=== PATIENT | male | born 1970 | race African-American/Black ===

== ENCOUNTER → 2017-01-20 | Day surgery (SDC) | payer OTHER ==
[2017-01-17 09:45] VITALS: BP 152/72
[~2017-01-20] MED LIST: ADDERALL XR30 MG PO; AMBIEN10 M1 PO; Motrin,Rufen800 MG PO; NORCO 325 MG-51 TAB PO; PERCOCET 325 MG1 TA5 PO; PERCOCET 5-3251 EACH PO; VISTARIL25 MG PO
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
[2017-01-20 07:30] VITALS: BP 126/82
[2017-01-20 07:30] LABS: BASO % 0.5 % (0.0-1.0); EOS # 0.1 10*3/uL (0.0-0.4); EOS % 3.5 % (1.0-4.0); HEMATOCRIT 39.2 % (42.0-52.0); HEMOGLOBIN 13.9 g/dl (14.0-18.0); LYMPH # 1.5 10*3/uL (1.3-4.4); LYMPH % 39.4 % (27.0-41.0); MEAN CELL VOLUME 90.5 fl (80.0-94.0); MEAN CORPUSCULAR HGB 32.1 pg (27.0-31.0); MEAN CORPUSCULAR HGB CONC 35.5 g/dl (33.0-37.0); MEAN PLATELET VOLUME 9.2 fl (9.6-12.3); MONO # 0.6 10*3/uL (0.1-1.0); MONO % 14.9 % (3.0-9.0); NEUT # 1.6 10*3/uL (2.3-7.9); NEUT % 41.4 % (47.0-73.0); PLATELET COUNT AUTOMATED 256 10*3/uL (130-400); RED BLOOD COUNT 4.33 10*6/uL (4.50-5.90); RED CELL DISTRI WIDTH 12.6 % (0-14.5); WHITE BLOOD COUNT 3.8 10*3/uL (4.8-10.8)
[2017-01-20 07:42] LABS: BUN 14 mg/dl (7-24); CHLORIDE 109 mmol/L (98-107); CREATININE 1.51 mg/dL (0.70-1.30); POTASSIUM 3.8 mmol/L (3.5-5.1); SODIUM 141 mmol/L (136-145)
[2017-01-20 08:54] VITALS: BP 104/57
[2017-01-20 09:09] VITALS: BP 104/61
[2017-01-20 09:24] VITALS: BP 106/72
[2017-01-20 09:35] VITALS: BP 112/64
== END ==
LOC: SDC 01-17 09:30
PROVIDERS: Surgery
DX: M60.28 Foreign body granuloma of soft tissue, not elsewhere classified, other site (principal); Z18.89 Other specified retained foreign body fragments; J45.909 Unspecified asthma, uncomplicated; Z98.890 Other specified postprocedural states; Z90.5 Acquired absence of kidney

== ENCOUNTER → 2018-10-18 | Outpatient (CLI) | payer OTHER | END | disposition home or self-care (01) | LOC: NM 07:00 | DX: E05.90 Thyrotoxicosis, unspecified without thyrotoxic crisis or storm (principal); R53.83 Other fatigue ==

== ENCOUNTER → 2019-04-24 | Outpatient (CLI) | payer OTHER ==
[2019-04-24 09:57] LABS: BILIRUBIN NEGATIVE (NEGATIVE); BLOOD NEGATIVE (NEGATIVE); CLARITY CLEAR (CLEAR); COLOR YELLOW (YELLOW); GLUCOSE NEGATIVE (NEGATIVE); KETONE NEGATIVE (NEGATIVE); LEUKO ESTERASE NEGATIVE (NEGATIVE); NITRITE NEGATIVE (NEGATIVE); UROBILINOGEN 0.2 E.U./dl (0.2-1.0)
[2019-04-24 10:13] LABS: ALBUMIN 3.5 gm/dl (3.1-4.5); CREATININE 1.68 mg/dL (0.70-1.30); POTASSIUM 3.7 mmol/L (3.5-5.1)
[2019-04-24 10:15] LABS: PHOSPHOROUS 2.4 mg/dL (2.5-4.9); TOTAL PROTEIN 7.1 gm/dL (6.4-8.2)
[2019-04-24 10:44] LABS: WBC 0-2 wbc/hpf (0-5)
[2019-04-24 10:45] LABS: VITAMIN D, 25-HYDROXY 16.9 ng/mL (30-100)
[2019-04-25 04:08] LABS: CREATININE,URINE 142.3 mg/dL (Not Estab.)
== END | disposition home or self-care (01) ==
LOC: LAB 09:06 → US 09:30
PROVIDERS: Internal Medicine Nephrology
DX: N18.3 Chronic kidney disease, stage 3 (moderate) (principal)

== ENCOUNTER → 2021-11-18 | Outpatient (CLI) | payer OTHER ==
[2021-11-18 10:39] LABS: CREATININE 1.67 mg/dL (0.70-1.30)
== END | disposition home or self-care (01) ==
LOC: CT 11-03 10:00 → LAB 10:07 → CT 10:07
PROVIDERS: ATTEND Internal Medicine
DX: N40.0 Benign prostatic hyperplasia without lower urinary tract symptoms (principal); M62.89 Other specified disorders of muscle; I87.8 Other specified disorders of veins; M48.061 Spinal stenosis, lumbar region without neurogenic claudication

== ENCOUNTER → 2022-04-28 | Outpatient (CLI) | payer OTHER | END | disposition home or self-care (01) | LOC: RAD 16:55 | PROVIDERS: ATTEND Internal Medicine | DX: M25.812 Other specified joint disorders, left shoulder (principal) ==

== ENCOUNTER → 2022-05-13 | Outpatient (CLI) | payer OTHER | END | disposition home or self-care (01) | LOC: RAD 15:15 | PROVIDERS: ATTEND Internal Medicine | DX: S43.005A Unspecified dislocation of left shoulder joint, initial encounter (principal); M25.812 Other specified joint disorders, left shoulder; X58.XXXA Exposure to other specified factors, initial encounter; Y93.89 Activity, other specified; Y92.89 Other specified places as the place of occurrence of the external cause; Y99.8 Other external cause status ==

== ENCOUNTER → 2022-06-23 | Outpatient (CLI) | payer OTHER | END | disposition home or self-care (01) | LOC: MRI 01:48 | PROVIDERS: ATTEND Orthopaedic Surgery | DX: M75.112 Incomplete rotator cuff tear or rupture of left shoulder, not specified as traumatic (principal); M75.52 Bursitis of left shoulder; M25.412 Effusion, left shoulder; M67.814 Other specified disorders of tendon, left shoulder ==